=== PATIENT | male | born 1955 | race Caucasian/White ===

== ENCOUNTER 2025-02-17 10:50 | Day surgery (SDC) | payer OTHER, SELFPAY ==
--- NOTE | 2025-02-16 07:00 | EKG_ITS ---
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
[2025-02-16 10:14] VITALS: BMI 27.9
[2025-02-16 11:11] LABS: Collection Type, Urine Clean Catch; Squamous Epithelial Cell,Urine 0 /hpf (0-5)
[2025-02-16 11:26] LABS: Basophils # (Auto) 0.1 Thou/mm3 (0.0-0.2); Basophils % (Auto) 1 % (0-2.5); Eosinophils # (Auto) 0.3 Thou/mm3 (0.0-0.5); Eosinophils % (Auto) 3 % (0-10); Hematocrit 42.0 % (41.0-53.0); Hemoglobin 14.2 g/dL (13.5-16.0); Immature Granulocytes Auto 0.04 Thou/mm3 (0.00-0.00); Lymphocytes # (Auto) 3.3 Thou/mm3 (1.0-4.8); Lymphocytes % (Auto) 29 % (10-50); Mean Corpuscular HGB Conc 33.8 g/dl (31.0-37.0); Mean Corpuscular Hemoglobin 33.2 pg (25.0-35.0); Mean Corpuscular Volume 98 fL (80-100); Monocytes # (Auto) 1.4 Thou/mm3 (0.0-0.8); Monocytes % (Auto) 13 % (0-12); Neutrophils # (Auto) 6.0 Thou/mm3 (1.8-7.7); Neutrophils % (Auto) 54 % (37-80); Nucleated Red Blood Cell # 0.00 Thou/mm3 (0.00-0.00); Nucleated Red Blood Cell % 0 /100 WBC (0); Platelet Count 247 Thou/mm3 (140-440); RDW Standard Deviation 45.8 fL (35.1-43.9); Red Blood Count 4.28 Miln/mm3 (4.50-5.90); White Blood Count 11.2 Thou/mm3 (3.8-10.6)
[2025-02-16 11:29] LABS: Bilirubin,Urine Negative (Negative); Blood,Urine Negative (Negative); Clarity,Urine Clear (Clear/Hazy); Color,Urine Yellow (Lt Yel-Yel); Glucose, Urine Negative (Negative); Ketones,Urine Negative (Negative); Leukocyte Esterase,Urine Positive (Negative); Nitrite,Urine Negative (Negative); PH,Urine 6.5 (5.0-7.0); Protein,Urine Negative (Neg - Trace); RBC,Urine 1 /hpf (0-3); Specific Gravity,Urine 1.015 (1.001-1.035); Urobilinogen,Urine Negative mg/dL (0.0-1.0); WBC,Urine 5 /hpf (0-5)
[2025-02-16 11:39] LABS: Alanine Aminotransferase 17 U/L (10-49); Albumin, Serum 4.6 gm/dL (3.4-4.8); Albumin/Globulin Ratio 2.0 (1.2-2.2); Alkaline Phosphatase 119 U/L (46-116); Anion Gap 9 (7-16); Aspartate Amino Transferase 23 U/L (0-34); BUN/Creatinine Ratio 8 Ratio (12-20); Bilirubin,Total 0.9 mg/dL (0.3-1.2); Blood Urea Nitrogen 6 mg/dL (9-23); Calcium 9.3 mg/dL (8.3-10.6); Calcium (Corrected) 9.3 mg/dL (8.5-10.1); Carbon Dioxide 30.1 mMol/L (20.0-31.0); Chloride 104 mMol/L (98-107); Creatinine (Component) 0.8 mg/dL (0.6-1.3); Estimated Creatinine Clearance 88.8 mL/min (>60); Globulin 2.3 gm/dL (2.3-3.5); Glucose 110 mg/dL (74-106); Osmolality,Calculated 283 (275-295); Potassium 4.3 mMol/L (3.4-5.1); Sodium 143 mMol/L (136-145); Total Protein 6.9 gm/dL (5.7-8.2); eGFR > 60 See Note
--- NOTE | 2025-02-16 14:13 | ESHP_ITS ---
RE: KIRSTEN SHAW : 1955 DATE OF ADMISSION: 02/16/2025 HISTORY OF PRESENT ILLNESS: A 69-year-old gentleman who was referred to me with history of elevated PSA of 7. Percentage free PSA is 14.3. He is a Yi speaking male. He has a prostate problem and he has a slowing urinary stream, nocturia x3. PAST SURGICAL HISTORY: Previous surgery included cystoscopy at some other place. PERSONAL HISTORY: Patient has 4 children. ALLERGIES: NONE KNOWN. PAST MEDICAL HISTORY: No history of diabetes mellitus. He does have history of hypertension. HOME MEDICATIONS: He takes; 1. Lisinopril. 2. Zoloft. 3. Flomax 0.4 mg every day. PHYSICAL EXAMINATION: HEENT: Normal. Neck: Supple. Lungs: Clear. Cardiovascular: Heart sounds are normal. Abdomen: Soft without any organomegaly. No guarding. No rigidity. 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 Phallus is normal. Testes are down scrotum. Rectal examination reveal moderately enlarged prostate without any hard nodules. IMPRESSION: 1. Prostatism. 2. Prostatic obstruction. 3. Elevated PSA of 7.0. PLAN: Plan is cystoscopy, transrectal prostatic ultrasound with ultrasound- guided prostatic needle biopsy. Planned procedure, risks, and complications have been discussed with the patient. Patient has understood them and agreed to proceed. DT: 13:51:46 TT: 14:11:00 Ref: [id number] - TID: [id number]
[2025-02-17 06:00] VITALS: BP 160/85; PULSE 56; RESP 16; TEMP 36.2; O2SAT 99; BMI 27.3
--- NOTE | 2025-02-17 12:30 | XR_ITS ---
EXAMINATION: Transrectal prostate sonography Date and time: February 17, 2025, 12:25 p.m. INDICATIONS: Transrectal prostate biopsy guidance for biopsies by physician today TECHNIQUE AND FINDINGS: Transrectal prostate sonographic images Prostate volume 119.37 cc IMPRESSION: Transrectal prostate sonographic guidance for prostate biopsy today
[2025-02-17 13:00] VITALS: BP 136/77; PULSE 63; RESP 17; TEMP 36.6; O2SAT 100
[2025-02-17 13:05] VITALS: BP 125/68; PULSE 58; RESP 17; O2SAT 100
[2025-02-17 13:10] VITALS: BP 125/75; PULSE 55; RESP 16; O2SAT 99
[2025-02-17 13:15] VITALS: BP 138/78; PULSE 57; RESP 12; TEMP 36.6; O2SAT 97
[2025-02-17 13:25] VITALS: BP 142/76; PULSE 53; RESP 19; TEMP 36.3; O2SAT 97
--- NOTE | 2025-02-17 13:25 | SUR.PHASEII ---
1325: resume care. received report from LIZETH Rodas. pt alert and oriented. denies s/s of pain or discomfort. no s/s of resp. distress or discomfort. scant amount of dry blood noted from penis.
--- NOTE | 2025-02-17 13:25 | SUR.PHASEII ---
1300: pt arrived to PACU via gurney awake, alert, able to follow commands, breathing unlabored, report from Conor STANLEY and Shiv EASTON 1315: pt tolerating oral fluids without difficulty swallowing or n/v 1325: Report to Jennifer STANLEY
--- NOTE | 2025-02-17 13:40 | SUR.PHASEII ---
1340: pt sitting in the wheelchair ready for discharge, waiting for transportation. pt alert and oriented. denies any pain or discomfort. no s/s of resp. distress or discomfort. dry blood noted from penis. no active bleeding noted.
--- NOTE | 2025-02-17 14:05 | SUR.PHASEII ---
1405: pt discharge to home via wheelchair. pt alert and oriented. no s/s of resp. distress or discomfort. denies any pain or discomfort. scant amount of dry blood from penis. discharge instructions given to patient and son-Gama, verbalizes understanding. all belongings brought given back to patient.
--- NOTE | 2025-02-17 16:22 | ESOP_ITS ---
RE: KIRSTEN SHAW : 1955 DATE OF OPERATION: 02/17/2025 PREOPERATIVE DIAGNOSES: Prostatism, prostatic obstruction, and elevated PSA of 7.0. POSTOPERATIVE DIAGNOSES: Prostatism, prostatic obstruction, and elevated PSA of 7.0. PROCEDURES PERFORMED: Cystoscopy, urethral dilatation, and transrectal prostatic ultrasound with ultrasound guided prostatic needle biopsy. ANESTHESIA: Monitored anesthesia by Mr. Shiv CRNA. INDICATION: Patient is a 69-year-old gentleman with a history of prostatism, nocturia x3, slowing urinary stream, and elevated PSA of 7.0. Rectally, he has a moderately large prostate; the left lobe is bigger than the right. He is now scheduled to have cystoscopy and transrectal prostatic ultrasound with ultrasound guided prostatic needle biopsy. Planned procedure, risks, and complications have been discussed with the patient. The patient understood them and agreed to proceed. DESCRIPTION OF PROCEDURE: After the patient was brought to the operating table, under adequate monitored anesthesia and in the dorsal lithotomy position, the parts were prepped and draped in the usual fashion. Cystoscopy was then carried out, which revealed an adequate urethral meatus, normal-appearing urethra, and the prostatic urethra revealed a moderately large prostate; the left lobe is larger than the right. There is a small median lobe enlargement. Residual urine was 2 ounces, yellow and clear, and was sent for culture and sensitivity examination. There are no intravesical stones or tumors. Ureteral orifices are found to be normal in position and appearance. The scope was withdrawn, and the urethra was dilated. The patient was then turned in the left lateral position. Transrectal prostatic ultrasound was carried out, and biopsies were obtained from both lobes using ultrasound guidance. Prostatic volume was measured at 119 cubic cm. The patient tolerated the entire procedure well and left the room in good condition. DT: 13:09:46 TT: 16:20:00 Ref: [id number] - TID: [id number]
== END 2025-02-17 14:05 | disposition home or self-care (01) ==
PROVIDERS: Anesthesiology; PCP Family Medicine; Referring Provider Surgery; Visit Provider Surgery
PROC: 0TJB8ZZ Inspection of Bladder, Via Natural or Artificial Opening Endoscopic (ICD-10-PCS; CPT 52000; principal; 2025-02-17 12:30)
PROC: (CPT 55700; 2025-02-17 12:30)
DX: N40.1 Benign prostatic hyperplasia with lower urinary tract symptoms (principal); N13.8 Other obstructive and reflux uropathy; R35.1 Nocturia; R39.198 Other difficulties with micturition; Z01.810 Encounter for preprocedural cardiovascular examination; L81.5 Leukoderma, not elsewhere classified
CPT/HCPCS: 52281; 55700; 36415; 76942; 80053; 81001; 85025; 87086; 93005; A4217; A4649; J0694; J2250; J2704; J3010